=== PATIENT | female | born 1965 | race Caucasian/White ===

== ENCOUNTER → 2017-03-24 | Outpatient (CLI) | payer MEDICAID ==
[~2017-03-24] MED LIST: ADVAIR DISK28 PUFFS IN; ALBUTEROL2.5 MG/NEB INH; ASPIRIN 81MG TA81 MG PO; EPINEPHRINE IJ; FUROSEMIDE 20MG20 MG PO; GABAPENTIN300 MG PO; HYDROCHLOROTHIA25 M1 PO; IBUPROFEN800 MG PO; KLOR-CON20 ME1 PO; LISINOPRIL 20MG20 MG PO; LORTAB 5/3251 TAB PO; METOPROLOL 25 M25 MG PO; NEURONTIN 300M300 MG PO; PANTOPRAZOLE SO40 MG PO; SIMVASTATIN20 MG PO; SPIRIVA HA1 PUFF/INH IH; VENTOLIN H0.09 MG/AC IH; VITRON-C 125 MG1 TAB PO; ZITHROMAX Z PA250 MG PO
--- NOTE | 2017-03-28 06:42 | RADIOLOGY REPORT PS360 ---
CT SINUS (MAX-FACIAL W/O CONT) CLINICAL INDICATION: DEVIATED NASAL SEPTUM ORDERING PHYSICIAN: Carmelo Gonzalez MD PATIENT AGE: 52 years COMPARISON: None TECHNIQUE:Axial, sagittal, and coronal images are generated and reviewed without contrast COMPARISON: None FINDINGS:There is severe rightward nasal septal deviation inferiorly with narrowing of the nasal canal. Inferior nasal septal spur is present measuring 3 mm. The superior aspect of the nasal septum is deviated toward the left anteriorly with narrowing of the nasal canal on the left as well. There are bilateral kamilah bullosa. No significant mucosal thickening is evident. The ostomy or complex is are patent but appear soft slightly narrowed. There is a focal rounded soft tissue density within the left maxillary sinus anteriorly measuring 12 mm consistent with a mucous retention cyst. There is an oval soft tissue density on the left just inferior to the zygomatic arch lying along the anterior aspect of the masseter muscle. This measures 18 x 8 mm is near water density. The etiology is indeterminate and could be due to a cyst or an isodense lymph node. IMPRESSION: 1. Severe rightward nasal septal deviation inferiorly with septal spur with bilateral kamilah bullosa. 2. The nasal septum is deviated toward the left superiorly 3. Oval 18 x 8 mm isodensity in the left maxillary region within the subcutaneous soft tissues which could be related to a cyst or isodense lymph node
== END ==
LOC: RAD 14:59
DX: J34.2 Deviated nasal septum (principal)

== ENCOUNTER → 2017-05-09 | Outpatient (CLI) | payer MEDICAID ==
--- NOTE | 2017-05-11 16:23 | RADIOLOGY REPORT PS360 ---
DIG MAMM-SCREEN VIVEK W/CAD CAD Screening ORDERING PHYSICIAN : Chalres Pope MD PATIENT AGE: 52 years GENDER: Female COMPARISON: Previous mammograms: March 2016, August 2014, INDICATION: Routine screening no hormones no new complaints. Family history breast cancer:. Mother breast cancer premenopausal.. Paternal grandmother. Paternal aunts x4 breast cancer. TECHNIQUE: Standard CC and MLO images were obtained. R2 CAD reviewed. FINDINGS: Low-density breast bilaterally. Generalized fatty replacement. No significant new areas of concern. Stable minor asymmetry . No dominant mass nor suspicious calcifications either breast. IMPRESSION: Stable bilateral mammogram no new areas of concern. BI-RADS CATEGORY: 1 RECOMMENDED FOLLOWUP: 12M 12 MONTH FOLLOW-UP (A letter has been sent to the patient regarding results of the study.)
== END ==
LOC: RAD 10:53
DX: Z12.31 Encounter for screening mammogram for malignant neoplasm of breast (principal)
CPT/HCPCS: G0202